=== PATIENT | female | born 1955 | race Caucasian/White ===

== ENCOUNTER 2019-02-26 00:14 | Inpatient (IN) | payer MEDICAID ==
[~2019-02-26] VITALS: Ht 170.2 cm; Wt 76.3 kg
--- NOTE | 2019-02-26 00:37 | PHYS DOC ---
Adult General Chief Complaint Chief Complaint: MECHANICAL FALL HPI HPI 63-year-old female presents via EMS from rehabilitation facility. They sent her here tonight because she fell twice today. She fell once in the morning and then once in the evening. She tells me that she remembers falling, but is unsure why she fell. She states that she just collapsed. She tells me her legs "just give out sometimes". She has not been feeling ill lately. She does admit to frequent urination. She "has a lot of problems with anxiety". She denies fever or chills. She has no other complaints at this time. Review of Systems Review of Systems Constitutional: Denies fever or chills [] Eyes: Denies change in visual acuity, redness, or eye pain [] HENT: Denies nasal congestion or sore throat [] Respiratory: Denies cough or shortness of breath [] Cardiovascular: No additional information not addressed in HPI [] GI: Denies abdominal pain, nausea, vomiting, bloody stools or diarrhea [] : Urinary frequency[] Musculoskeletal: Left arm and leg pain[] Integument: Denies rash or skin lesions [] Neurologic: Denies headache, focal weakness or sensory changes [] Endocrine: Denies polyuria or polydipsia [] All other systems were reviewed and found to be within normal limits, except as documented in this note. Allergies Allergies Allergies Coded Allergies Type Severity Reaction Last Updated Verified captopril Allergy Intermediate 02/26/19 Yes lithium Allergy Intermediate 02/26/19 Yes sulfamethoxazole Allergy Intermediate 02/26/19 Yes trimethoprim Allergy Intermediate Unknown 02/26/19 Yes Tetanus Vaccines and Toxoid Allergy Unknown 02/26/19 Yes Physical Exam Physical Exam Constitutional: Well developed, well nourished, no acute distress, non-toxic appearance. [] HENT: Normocephalic, atraumatic, bilateral external ears normal, oropharynx moist, no oral exudates, nose normal. [] Eyes: PERRLA, EOMI, conjunctiva normal, no discharge. [] Neck: Normal range of motion, no tenderness, supple, no stridor. [] Cardiovascular:Heart rate regular rhythm, no murmur [] Lungs & Thorax: Bilateral breath sounds clear to auscultation [] Abdomen: Bowel sounds normal, soft, no tenderness, no masses, no pulsatile masses. [] Skin: Warm, dry, no erythema, no rash. [] Back: No tenderness, no CVA tenderness. [] Extremities: No tenderness, no cyanosis, no clubbing, ROM intact, no edema. [] Neurologic: Alert and oriented X 3, normal motor function, normal sensory function, no focal deficits noted. [] Psychologic: Affect normal, judgement normal, mood anxious. [] EKG EKG [] Radiology/Procedures Radiology/Procedures [] Impressions: STUDY: CT head without contrast INDICATION: Fall. COMPARISON: Most recently on 02/14/2019 TECHNIQUE: Axial CT imaging through the head without the use of intravenous contrast. Sagittal and coronal reformats were obtained. One or more of the following individualized dose reduction techniques were utilized for this examination: 1. Automated exposure control 2. Adjustment of the mA and/or kV according to patient size 3. Use of iterative reconstruction technique. FINDINGS: No acute intracranial hemorrhage. No newly seen area of tejada-white matter differentiation loss to suggest an acute cortical infarction. Redemonstrated dilatation of the right lateral ventricle that is unchanged from the prior. Less pronounced ventriculomegaly elsewhere is unchanged. Intracranial atherosclerotic calcifications. White matter findings as can be seen in the setting of chronic microvascular ischemic change. Parenchymal volume loss. No large scalp hematoma is readily apparent. The orbits/globes are unremarkable. No depressed calvarial fracture. The paranasal sinuses and mastoid air cells are well aerated. IMPRESSION: No acute intracranial abnormality by CT. No significant interval change from the 02/14/2019 comparison with chronic findings to include ventriculomegaly as detailed above. Electronically signed by: EMERITA JOAQUIN MD (02/26/2019 2:11 AM) [facility] DICTATED AND SIGNED BY: EMERITA JOAQUIN MD DATE: 02/26/19210 CC: ALISIA BARBOZA DO; YOLIS BARNES MD ~ Course & Med Decision Making Course & Med Decision Making Pertinent Labs and Imaging studies reviewed. (See chart for details) The patient's head CT is negative for acute findings. There are significant chronic findings. See official read for more details. Her CBC is unremarkable. Her urinalysis is negative for infection. The patient had an episode of unsteadiness as she transitioned from the bed to the bedside commode. She did not fall, required assistance from the nurse. The patient's CMP is unremarkable except for low albumin. I do not have a definitive reason for why the patient has having dizziness and falls. I spoke to the hospitalist, Dr. Chapman and he has accepted the patient for admission and further workup. [] Dragon Disclaimer Dragon Disclaimer This electronic medical record was generated, in whole or in part, using a voice recognition dictation system. Departure Departure: Disposition: HOME/RESIDENCE PRIOR TO ADM Condition: STABLE ALISIA BARBOZA DO Feb 26, 2019 00:37
[2019-02-26 02:08] LABS: BASO # 0.1 x10^3/uL (0.0-0.2); BASO % 1 % (0-3); EOS # 0.2 x10^3/uL (0.0-0.7); EOS % 2 % (0-3); HEMATOCRIT 38.5 % (36.0-47.0); HEMOGLOBIN 12.9 g/dL (12.0-15.5); LYMPH # 2.9 x10^3/uL (1.0-4.8); LYMPH % 40 % (24-48); MEAN CORPUSCULAR HEMOGLOBIN 33 pg (25-35); MEAN CORPUSCULAR HGB CONC 34 g/dL (31-37); MEAN CORPUSCULAR VOLUME 97 fL (79-100); MONO # 0.7 x10^3/uL (0.0-1.1); MONO % 10 % (0-9); NEUT # 3.5 x10^3uL (1.8-7.7); NEUT % 48 % (31-73); PLATELET COUNT 145 x10^3/uL (140-400); RED BLOOD COUNT 3.95 x10^6/uL (3.50-5.40); RED CELL DISTRIBUTION WIDTH 14.4 % (11.5-14.5); WHITE BLOOD COUNT 7.3 x10^3/uL (4.0-11.0)
--- NOTE | 2019-02-26 02:14 | RAD ---
STUDY: CT head without contrast INDICATION: Fall. COMPARISON: Most recently on 02/14/2019 TECHNIQUE: Axial CT imaging through the head without the use of intravenous contrast. Sagittal and coronal reformats were obtained. One or more of the following individualized dose reduction techniques were utilized for this examination: 1. Automated exposure control 2. Adjustment of the mA and/or kV according to patient size 3. Use of iterative reconstruction technique. FINDINGS: No acute intracranial hemorrhage. No newly seen area of tejada-white matter differentiation loss to suggest an acute cortical infarction. Redemonstrated dilatation of the right lateral ventricle that is unchanged from the prior. Less pronounced ventriculomegaly elsewhere is unchanged. Intracranial atherosclerotic calcifications. White matter findings as can be seen in the setting of chronic microvascular ischemic change. Parenchymal volume loss. No large scalp hematoma is readily apparent. The orbits/globes are unremarkable. No depressed calvarial fracture. The paranasal sinuses and mastoid air cells are well aerated. IMPRESSION: No acute intracranial abnormality by CT. No significant interval change from the 02/14/2019 comparison with chronic findings to include ventriculomegaly as detailed above. Electronically signed by: EMERITA JOAQUIN MD (02/26/2019 2:11 AM) [facility]
[2019-02-26 02:21] LABS: BACTERIA,URINE 0 /HPF (0-FEW); BILIRUBIN,URINE NEG (NEG); CLARITY,URINE CLEAR; COLOR,URINE YELLOW; GLUCOSE,URINE NEG (NEG); NITRITE,URINE NEG (NEG); RBC,URINE 0 /HPF (0-2); SQUAMOUS EPITHELIAL CELL,UR FEW /LPF; UROBILINOGEN,URINE 0.2 mg/dL (0.2 mg/dL)
[2019-02-26 02:23] LABS: ALBUMIN 2.8 g/dL (3.4-5.0); ALBUMIN/GLOBULIN RATIO 0.7 (1.0-1.7); CALCIUM 9.2 mg/dL (8.5-10.1); GFR 56.4; TOTAL BILIRUBIN 0.2 mg/dL (0.2-1.0); TOTAL PROTEIN 6.8 g/dL (6.4-8.2)
[2019-02-26 02:24] LABS: POTASSIUM 4.2 mmol/L (3.5-5.1)
[2019-02-26] MEDS ORDERED: ONDANSETRON PF 4 MG/2 ML VIAL. IV PRN (02:45)
[2019-02-26 04:08] VITALS: BP 134/89
[2019-02-26] MEDS ORDERED: BISA10SU4 RC (05:32)
[2019-02-26] MEDS ORDERED: SERT100T PO (05:32)
[2019-02-26] MEDS ORDERED: MAGN400O7 PO (05:32)
[2019-02-26] MEDS ORDERED: NA P133E2 RC (05:32)
[2019-02-26] MEDS ORDERED: ACET325T9 PO (05:32)
[2019-02-26] MEDS ORDERED: DIVA500T2 PO (05:32)
[2019-02-26] MEDS ORDERED: ONDA4TAB12 PO (05:32)
[2019-02-26] MEDS ORDERED: QUET100T4 PO (05:32)
[2019-02-26] MEDS ORDERED: FAMO20TA5 PO (05:32)
[2019-02-26] MEDS ORDERED: RISP0.5T24 PO (05:32)
[2019-02-26] MEDS ORDERED: ASPI-630 PO (05:32)
[2019-02-26] MEDS ORDERED: LOSA50TA86 PO (05:32)
[2019-02-26] MEDS ORDERED: CLON1TAB PO (05:32)
[2019-02-26] MEDS ORDERED: QUET200T4 PO (05:32)
[2019-02-26] MEDS ORDERED: TRAM50TA PO (05:32)
[2019-02-26 07:00] VITALS: BP 134/89
[2019-02-26 10:11] VITALS: BP 133/98
--- NOTE | 2019-02-26 12:10 | HP ---
ADMIT DATE: 02/26/2019 HISTORY OF PRESENT ILLNESS: The patient is a 63-year-old female patient, a resident at [facility], who was brought to the Emergency Room after she sustained a mechanical fall. She was brought here last night because she fell twice. She fell once in the morning and then once in the evening. She stated that she remembers falling, but is unsure why she fell. She just has collapsed. She said that her legs just gave out sometimes. She has not been feeling ill lately. She does admit to frequent urination. She has a lot of problems with anxiety. She denies any fever or chills. She has no other complaints at this time. She was extensively investigated and did have a CT scan of the head without contrast, which basically showed no acute intracranial abnormality on CT scan. No significant interval change from 02/14/2019 in comparison. Her chronic finding to include ventriculomegaly, more in the right lateral ventricle that is unchanged from prior, she did have ventriculomegaly less pronounced in the left side. She has intracranial atherosclerotic calcification and white matter findings suggestive of chronic microvascular ischemic changes and parenchymal volume loss. She was admitted. Other lab works were unremarkable, particularly a CBC. Her chemistry as well as her urinalysis was essentially unremarkable and she was admitted for further evaluation and treatment. PAST MEDICAL HISTORY: Significant for hypertension. She also has encephalitis and encephalomyelitis and temporal sclerosis, schizoaffective disorder, bipolar type. She has generalized muscle weakness, difficulty walking, cognitive communication deficit, major depressive disorder, recurrent, unspecified anxiety disorder. She also is known to have seizure disorder, gastroesophageal reflux disease without esophagitis, chronic constipation, and nausea and vomiting. She has also had episodes of psychosis with hallucinations. She also has a history of alcohol abuse as well as stimulant abuse. PAST SURGICAL HISTORY: Unremarkable. ALLERGIES: SHE IS ALLERGIC TO TETANUS VACCINES AND TOXOIDS, CAPTOPRIL, LITHIUM, SULFAMETHOXAZOLE AND TRIMETHOPRIM. MEDICATIONS: She is currently on following medications: She is on losartan potassium 50 mg once a day, aspirin 81 mg once a day, tramadol 50 mg every 6 hours as needed, acetaminophen 650 mg every 6 hours, clonazepam 1.5 mg at bedtime, divalproex sodium 1500 mg at bedtime, sertraline 100 mg once a day. She is on quetiapine fumarate for Seroquel 100 mg afternoon and 200 mg twice a day. She is on risperidone 0.5 mg at bedtime, bisacodyl 10 mg suppositories rectally daily p.r.n. for constipation, milk of magnesia 30 mL p.o. daily p.r.n. for constipation. She has a fleet enema rectally daily p.r.n. for constipation. She is on ondansetron 4 mg every 6 hours as needed. She is on famotidine 20 mg at bedtime. FAMILY HISTORY: Noncontributory. SOCIAL HISTORY: She is , currently residing at [facility] for almost a year now. She has a son and a daughter. 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 She does smoke, does not drink alcohol, and according to her, does not use any illicit drugs, although in her history from the nursing facility, she apparently has alcohol and stimulant abuse. REVIEW OF SYSTEMS: The patient was very lethargic and drifts to sleep and was not forthcoming with any complaint. OBJECTIVE: GENERAL: When I examined her, she was pale, but no jaundice, cyanosis, or thyromegaly. No jugular venous distension. No limb edema. VITAL SIGNS: Her heart rate was 72, blood pressure was 133/98, temperature was 97.6, respiratory rate was 18, and oxygen saturation was 94% on room air. HEAD, EYES, EARS, NOSE, AND THROAT: She is normocephalic, atraumatic. NECK: Supple. HEART: Showed normal first and second heart sounds. No gallop or murmur. CHEST: Clear to auscultation. No crepitation or rhonchi. ABDOMEN: Distended, soft, nontender. NEUROLOGIC: She is sleepy, but arousable. All cranial nerves intact. She seemed to have residual left-sided weakness and according to nursing staff, she has also some shuffling gait. She is on multiple psychotropic medications that might cause drug-induced Parkinson's disease, although I have not tested her gait as she normally uses a walker. LABORATORY DATA: Her lab work this morning showed a white cell count 7300, hemoglobin 13, hematocrit 39, MCV 97, and platelet count of 148,000, with normal manual differential. Her chemistry showed a serum sodium 139, potassium 4.2, chloride 104, bicarbonate 29, anion gap of 6, BUN 17, creatinine was 1. Estimated GFR was 56 mL per minute. Her glucose was 84, calcium was 9.2. Total bilirubin, AST, ALT, alkaline phosphatase were normal. Total protein was 6.8, albumin was 2.8. Urinalysis showed the urine was yellow, clear with a pH of 7.5, specific gravity of 1.010. The urine was negative for protein, glucose, ketones, blood, nitrite, and leukocyte esterase. There are no rbc's, very few wbc's, and no bacteria. RADIOLOGICAL DATA: Her CT scan of the head showed no acute intracranial hemorrhage, no newly seen areas of tejada-white matter differentiation loss to suggest an acute cortical infarction but demonstrated dilatation of the right lateral ventricle. This is unchanged from prior, less pronounced ventriculomegaly, elsewhere is unchanged. Intracranial atherosclerotic calcification, white matter findings as can be seen in the setting of chronic microvascular ischemic changes and parenchymal volume loss. No large scalp hematoma is readily apparent. The orbits and globes are unremarkable. No depressed calvarial fracture of the paranasal sinuses and mastoid air cells are well aerated. IMPRESSION: So, in summary, this is a 63-year-old female patient who was admitted with recurrent falls. She apparently has a history of right-sided cerebrovascular accident, left-sided hemiplegia. There is also marked parenchymal loss with ventriculomegaly, suggesting perhaps normal-pressure hydrocephalus. She is known to have hypertension, schizophrenia, and bipolar disorder. PLAN: My plan is to consult the neurologist as well as physical and occupational therapist. We will decide the further management accordingly. CRESENCIO FRASER MD DR: ANDRES/frida JOB#: [id number] / [id number]
[2019-02-26] MEDS ORDERED: MAGNESIUM HYDROXIDE 2,400 MG/30 ML ORAL.SUSP. PO PRN (12:45)
[2019-02-26] MEDS ORDERED: SODIUM PHOSPHATES 19/7GM 133 ML ENEMA. RC PRN (12:45)
[2019-02-26] MEDS ORDERED: ACETAMINOPHEN 325 MG TABLET PO PRN (12:45)
[2019-02-26] MEDS ORDERED: BISACODYL 10 MG SUPP.RECT RC PRN (12:45)
[2019-02-26] MEDS ORDERED: traMADol 50 MG TABLET PO PRN (12:45)
[2019-02-26] MEDS ORDERED: ONDANSETRON ODT 4 MG TAB.RAPDIS PO PRN (12:45)
[2019-02-26] MEDS: QUEtiapine 100 MG TABLET. PO SCH ×2 (13:40→20:20)
[2019-02-26 15:45] VITALS: BP 149/96
[2019-02-26] MEDS ORDERED: traZODone 50 MG TABLET. PO PRN (19:30)
[2019-02-26 20:12] VITALS: BP 138/85
[2019-02-26] MEDS: DIVALPROEX ER 500 MG TAB.ER.24H PO SCH (20:20)
[2019-02-26] MEDS: FAMOTIDINE 20 MG TABLET PO SCH (20:20)
[2019-02-26] MEDS: risperiDONE 0.5 MG TABLET. PO SCH (20:20)
[2019-02-26] MEDS: traZODone 50 MG TABLET. PO SCH (20:21)
[2019-02-26] MEDS: clonazePAM 1 MG TABLET PO SCH (20:21)
--- NOTE | 2019-02-26 21:41 | PDOC ---
Exam Note: Emilio Note: Please also refer to the separate dictated note~for this date of service dictated separately.~Patient seen individually. Discussed the patient with Nursing staff reviewed the chart.~Reviewed interim history and current functioning. Reviewed vital signs,~Labs/ Radiology~and current medications noted below. Continue current treatment with the changes noted in the dictated addendum note Assessment: Vital Signs/I&O: Vital Signs Date Time Temp Pulse Resp B/P (MAP) Pulse Ox O2 Delivery O2 Flow Rate FiO2 02/26/19 20:12 97.9 58 20 138/85 (102) 97 Room Air Labs: Laboratory Tests Test 02/26/19 01:25 02/26/19 01:35 Urine Collection Type Unknown Urine Color Yellow Urine Clarity Clear Urine pH 7.5 Urine Specific Meredith 1.020 Urine Protein Neg (NEG-TRACE) Urine Glucose (UA) Neg mg/dL (NEG) Urine Ketones (Stick) Neg mg/dL (NEG) Urine Blood Neg (NEG) Urine Nitrite Neg (NEG) Urine Bilirubin Neg (NEG) Urine Urobilinogen Dipstick 0.2 mg/dL (0.2 mg/dL) Urine Leukocyte Esterase Neg (NEG) Urine RBC 0 /HPF (0-2) Urine WBC 1-4 /HPF (0-4) Urine Squamous Epithelial Cells Few /LPF Urine Bacteria 0 /HPF (0-FEW) White Blood Count 7.3 x10^3/uL (4.0-11.0) Red Blood Count 3.95 x10^6/uL (3.50-5.40) Hemoglobin 12.9 g/dL (12.0-15.5) Hematocrit 38.5 % (36.0-47.0) Mean Corpuscular Volume 97 fL (79-100) Mean Corpuscular Hemoglobin 33 pg (25-35) Mean Corpuscular Hemoglobin Concent 34 g/dL (31-37) Red Cell Distribution Width 14.4 % (11.5-14.5) Platelet Count 145 x10^3/uL (140-400) Neutrophils (%) (Auto) 48 % (31-73) Lymphocytes (%) (Auto) 40 % (24-48) Monocytes (%) (Auto) 10 % (0-9) H Eosinophils (%) (Auto) 2 % (0-3) Basophils (%) (Auto) 1 % (0-3) Neutrophils # (Auto) 3.5 x10^3uL (1.8-7.7) Lymphocytes # (Auto) 2.9 x10^3/uL (1.0-4.8) Monocytes # (Auto) 0.7 x10^3/uL (0.0-1.1) Eosinophils # (Auto) 0.2 x10^3/uL (0.0-0.7) Basophils # (Auto) 0.1 x10^3/uL (0.0-0.2) Sodium Level 139 mmol/L (136-145) Potassium Level 4.2 mmol/L (3.5-5.1) Chloride Level 104 mmol/L (98-107) Carbon Dioxide Level 29 mmol/L (21-32) Anion Gap 6 (6-14) Blood Urea Nitrogen 17 mg/dL (7-20) Creatinine 1.0 mg/dL (0.6-1.0) Estimated GFR (Cockcroft-Gault) 56.4 BUN/Creatinine Ratio 17 (6-20) Glucose Level 84 mg/dL (70-99) Calcium Level 9.2 mg/dL (8.5-10.1) Total Bilirubin 0.2 mg/dL (0.2-1.0) Aspartate Amino Transferase (AST) 17 U/L (15-37) Alanine Aminotransferase (ALT) 10 U/L (14-59) L Alkaline Phosphatase 56 U/L (46-116) Total Protein 6.8 g/dL (6.4-8.2) Albumin 2.8 g/dL (3.4-5.0) L Albumin/Globulin Ratio 0.7 (1.0-1.7) L Current Medications: Meds: Current Medications Medications (Trade) Dose Ordered Sig/Modesta Route PRN Reason Start Time Stop Time Status Last Admin Dose Admin Clonazepam (KlonoPIN) 1.5 mg HS PO 02/26/19 21:00 02/26/19 20:21 Famotidine (Pepcid) 20 mg HS PO 02/26/19 21:00 02/26/19 20:20 Quetiapine Fumarate (SEROquel) 100 mg AFTRNOON PO 02/26/19 13:00 02/26/19 13:40 Risperidone (RisperDAL) 0.5 mg QHS PO 02/26/19 21:00 02/26/19 20:20 Divalproex Sodium (Depakote Er) 1,500 mg QHS PO 02/26/19 21:00 02/26/19 20:20 Quetiapine Fumarate (SEROquel) 200 mg BID PO 02/26/19 21:00 02/26/19 20:20 Trazodone HCl (Desyrel) 50 mg QHS PO 02/26/19 21:00 02/26/19 20:21 I have reviewed the current psychotropics carefully including drug interactions. Risk benefit ratio favors no change other than as noted in my dictated progress note. Diagnosis: Problems: (1) Anxiety disorder (2) Schizoaffective disorder, chronic condition with acute exacerbation (3) Impulse control disorder NAYELY JORDAN MD Feb 26, 2019 21:41
[2019-02-27 05:58] VITALS: BP 150/92
[2019-02-27] MEDS: ASPIRIN 81 MG TAB.CHEW PO SCH (08:27)
[2019-02-27] MEDS: SERTRALINE 100 MG TABLET. PO SCH (08:28)
[2019-02-27] MEDS: LOSARTAN 50 MG TABLET. PO SCH (08:28)
[2019-02-27] MEDS: QUEtiapine 100 MG TABLET. PO SCH ×3 (08:28→20:07)
[2019-02-27 09:48] LABS: VAL ACID 67 mcg/mL (50-100)
[2019-02-27 12:41] VITALS: BP 136/68
[2019-02-27] MEDS: NICOTINE 7MG PATCH. TD SCH (13:03)
[2019-02-27 19:14] VITALS: BP 152/116
[2019-02-27] MEDS: DIVALPROEX ER 500 MG TAB.ER.24H PO SCH (20:07)
[2019-02-27] MEDS: clonazePAM 1 MG TABLET PO SCH (20:07)
[2019-02-27] MEDS: traZODone 50 MG TABLET. PO SCH (20:07)
[2019-02-27] MEDS: risperiDONE 0.5 MG TABLET. PO SCH (20:07)
[2019-02-27] MEDS: FAMOTIDINE 20 MG TABLET PO SCH (20:07)
[2019-02-27 20:54] VITALS: BP 137/96
--- NOTE | 2019-02-27 21:46 | PDOC ---
Exam Note: Emilio Note: Please also refer to the separate dictated note~for this date of service dictated separately.~Patient seen individually. Discussed the patient with Nursing staff reviewed the chart.~Reviewed interim history and current functioning. Reviewed vital signs,~Labs/ Radiology~and current medications noted below. Continue current treatment with the changes noted in the dictated addendum note Assessment: Vital Signs/I&O: Vital Signs Date Time Temp Pulse Resp B/P (MAP) Pulse Ox O2 Delivery O2 Flow Rate FiO2 02/27/19 20:54 137/96 (110) 02/27/19 19:21 Room Air 02/27/19 19:14 98.3 92 18 97 I & O 02/26/19 02/26/19 02/27/19 15:00 23:00 07:00 Intake Total 960 ml 120 ml Output Total 2 ml 3 ml Balance 958 ml 117 ml Labs: Laboratory Tests Test 02/27/19 09:23 Valproic Acid Level 67 mcg/mL (50-100) Valproic Acid Last Dose Date 02/26/19 Valproic Acid Last Dose Time 2100 Current Medications: Meds: Current Medications Medications (Trade) Dose Ordered Sig/Modesta Route PRN Reason Start Time Stop Time Status Last Admin Dose Admin Aspirin (Children'S Aspirin) 81 mg DAILY PO 02/27/19 09:00 02/27/19 08:27 Losartan Potassium (Cozaar) 50 mg DAILY PO 02/27/19 09:00 02/27/19 08:28 Sertraline HCl (Zoloft) 100 mg DAILY PO 02/27/19 09:00 02/27/19 08:28 Nicotine (Nicoderm Cq 7mg) 1 patch DAILY TD 02/27/19 13:00 02/27/19 13:03 Olanzapine (ZyPREXA ZYDIS) 2.5 mg PRN Q2HR PRN PO PSYCHOSIS;AGITATION;ANXIETY 02/27/19 17:30 02/27/19 17:24 I have reviewed the current psychotropics carefully including drug interactions. Risk benefit ratio favors no change other than as noted in my dictated progress note. Diagnosis: Problems: (1) Recurrent falls (2) Hemiplegia affecting left nondominant side (3) Fall (4) Anxiety disorder (5) Schizoaffective disorder, chronic condition with acute exacerbation (6) Impulse control disorder NAYELY JORDAN MD Feb 27, 2019 21:46
--- NOTE | 2019-02-27 22:59 | DS ---
DATE OF DISCHARGE: 02/27/2019 HOSPITAL COURSE: The patient is a 63-year-old female patient, resident at [facility], who was brought to the Emergency Room after she sustained a mechanical fall. She apparently has fallen twice without sustaining any injury. She was extensively evaluated. CT scan of the head without contrast showed no evidence of any acute intracranial abnormality, no significant interval change from 02/14/2019 in comparison. Her chronic finding to include ventriculomegaly more on the right lateral ventricle that is unchanged from prior. She did have ventriculomegaly, less pronounced on the left side. She has intracranial atherosclerotic calcification white matter findings suggestive of chronic microvascular ischemic changes and parenchymal volume loss. Her lab works were unremarkable and she was evaluated by the physical therapist. We checked her orthostatics. No evidence of any postural hypotension. The patient has been ambulating steadily without any assistance or assistive devices and she has been extremely agitated and given that she is medically stable, an attempt was made to transfer her to [facility]. Unfortunately, she does not qualify to go upstairs and therefore, a decision was made to discharge her back to [facility]. PHYSICAL EXAMINATION: GENERAL: When I saw her this afternoon, she looked well and was clearly in no apparent respiratory distress. No pallor, jaundice, cyanosis, or thyromegaly. No jugular venous distention. No limb edema. VITAL SIGNS: Her heart rate was 75, blood pressure was 136/68, temperature was 98.2, respiratory rate was 20, and oxygen saturation was 95%. The rest of clinical exam stable. LABORATORY DATA: Showed a white cell count 7300, hemoglobin 13, hematocrit 38, MCV 97, and platelet count 145,000. Her chemistry showed a serum sodium 139, potassium 4.2, chloride was 104, bicarbonate 29, anion gap of 6, BUN 17, creatinine was 1, estimated GFR was 56 mL per minute, her glucose was 84, calcium was 9.2. Total bilirubin, AST, ALT, alkaline phosphatase were normal. Total protein was 6.8 and albumin 2.8. Urinalysis was unremarkable and toxic screen showed the valproic acid at 67 mcg/mL, which is well within therapeutic range. DISCHARGE MEDICATIONS: The patient was discharged back to [facility], to continue on Tylenol 650 mg every 6 hours, aspirin 81 mg daily, bisacodyl 10 mg suppository rectally daily p.r.n. for constipation, clonazepam 1.5 mg at bedtime for anxiety, divalproex 1500 mg at bedtime, famotidine 20 mg at bedtime, losartan potassium 50 mg daily, magnesium hydroxide for milk of magnesia 30 mL p.o. daily p.r.n. for constipation, Fleet enema rectally daily p.r.n. for constipation, ondansetron ODT 4 mg tablet. She was discharged also on quetiapine fumarate 100 mg at noon and 200 mg twice a day, risperidone for Risperdal 0.5 mg at bedtime, sertraline for Zoloft 100 mg tablet daily, and tramadol 50 mg p.o. q. 6 hourly as needed. FINAL DISCHARGE DIAGNOSES: Recurrent fall. No evidence of postural hypotension or any neurological deficit. Other medical problems include hypertension; encephalitis and encephalomyelitis; temporal sclerosis; schizoaffective disorder, bipolar type; generalized muscle weakness; cognitive communication deficit; major depressive disorder; severe anxiety disorder. She also has seizure disorder, gastroesophageal reflux disease, chronic constipation, episodes of psychosis, and hallucinations. CRESENCIO FRASER MD DR: ANDRES/frida JOB#: [id number] / [id number]
--- NOTE | 2019-02-28 00:36 | PN ---
DATE: 02/27/2019 SUBJECTIVE: The patient is resting, slightly propped up, sleeping comfortably, in no apparent distress. She is sleepy, but arousable. Unfortunately, she continued to drift back to sleep. She is on huge amount of medications that are sedating. She is on 200 mg of Seroquel twice a day and 100 mg at noon. She is on sertraline 100 mg daily. She is on trazodone 50 mg at bedtime. She is on divalproex 1500 mg at bedtime, risperidone 0.5 mg at bedtime. She is also on clonazepam 1.5 mg at bedtime. She is also on tramadol and I had a feeling that the patient is seen to be excessively sedated and may be the reason why she is falling. On questioning her this morning, she denied any complaint. The nursing staff did not voice any concerns that she has no further episodes of falling. She does manage to walk to the bathroom back without any assistance or assistive devices. OBJECTIVE: GENERAL: On examining her, she looked well and was clearly in no apparent respiratory distress. VITAL SIGNS: Her heart rate was 70, blood pressure 150/92, temperature was 97.4, respiratory rate was 18 and oxygen saturation was 96%. HEAD, EYES, EARS, NOSE AND THROAT: Showed normocephalic, atraumatic. NECK: Supple. HEART: Showed normal first and second heart sounds. No gallop or murmur. CHEST: Clear to auscultation. No crepitation or rhonchi. ABDOMEN: Distended, soft, nontender. No guarding or rigidity. No organomegaly. All hernial orifice intact. Bowel sounds normal. NEUROLOGIC: She is sleepy, but arousable. She seemed to be definitely more excessively sedated that she drifts back to sleep quickly, but all her cranial nerves are intact. She seemed to have residual left-sided hemiparesis. Her intake over the last 24 hours was 1080, no output was recorded. LABORATORY DATA: No lab work was done this morning. ASSESSMENT: 1. This is a 63-year-old female patient who was admitted with recurrent falls. 2. 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 3. She has also marked parenchymal loss and ventriculomegaly, suggesting perhaps normal pressure hydrocephalus. 4. Hypertension. 5. Schizophrenia. 6. Bipolar disorder. 7. The patient seemed to be excessively sedated as she is on Seroquel a total of 500 day. She is on trazodone 100 mg in the morning and 50 at night time. She is on risperidone 0.5 mg at bedtime and also clonazepam 1.5 mg at bedtime. I have already consulted Dr. Snyder and Dr. Villa. I believe that the patient seemed to be excessively sedated and perhaps some of her medication need to be cut down or discontinued altogether. CRESENCIO FRASER MD DR: ANDRES/frida JOB#: [id number] / [id number]
[2019-02-28 04:50] VITALS: BP 149/98
--- NOTE | 2019-02-28 06:29 | CONS ---
DATE OF CONSULTATION: 02/26/2019 This late entry date of service 02/26/2019 covers the elements not covered in my initial note 02/26/2019. I met with the patient in the evening of 02/26/2019. Discussed with nursing staff, reviewed the chart. IDENTIFYING DATA: The patient is a 63-year-old female seen in bed #107, [facility], for a psychiatric consult requested by Dr. Chapman on account of confusion, possible acute mental status changes, possible dementia within the context of her history of bipolar disorder. The patient has been agitated, anxious with significant mood lability as the reason for the request for this consult. CHIEF COMPLAINT: "I can't stop crying. I need something to help me sleep. I have bipolar disorder. I do not have schizoaffective disorder." HISTORY OF PRESENT ILLNESS: The patient is a [facility] the [facility] in [place] and she was brought to the Emergency Room after she sustained a mechanical fall. She had fallen the previous night on two separate occasions, once in the morning and once in the evening. She states she remembers the fall, but is unsure why she fell. She just had collapsed and her legs gave out from under her. She also admitted to frequent urination, complains of increased anxiety. CT head in the ER showed no acute changes and no interim change from 02/14/2019. She does have some ventriculomegaly more in the right lateral ventricle, unchanged from before. She has intracranial atherosclerotic calcification and white matter findings suggestive of chronic microvascular ischemic changes, parenchymal volume loss. ADMISSION LABS: CBC was unremarkable. UA unremarkable. She does admit to significant anxiety, mood swings, periods of elation, racing thoughts, alternating with being depressed in association with paranoia. PAST PSYCHIATRIC HISTORY: Positive for bipolar disorder with the mood swings and psychotic symptoms and recent depressive symptoms. She does complain of significant ongoing insomnia. She has extensive history of past alcohol abuse, but minimizes this. MEDICAL HISTORY: Positive for hypertension, encephalitis, and encephalomyelitis, temporal sclerosis, muscle weakness, seizure disorder, GERD, chronic constipation, nausea, and vomiting. PAST SURGICAL HISTORY: Unremarkable. ALLERGIES: TETANUS VACCINE AND TOXOID, CAPTOPRIL, LITHIUM, SULFAMETHOXAZOLE AND TRIMETHOPRIM. CURRENT PSYCHOTROPICS: Klonopin 1.5 mg at bedtime, Depakote 1500 mg at bedtime, Zoloft 100 mg a day, Seroquel 100 mg in the afternoon and 200 mg twice a day, Risperdal 0.5 mg at bedtime. FAMILY HISTORY: Noncontributory. SOCIAL HISTORY: The patient is . Alcohol abuse history as noted above. She resides at the [facility] noted [facility]. She has a son and a daughter. 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 She categorically denies drug abuse with the alcohol abuse history as noted above and stimulant abuse. REVIEW OF SYSTEMS: Positive for weakness, tiredness, unsteady gait. No CV, , pulmonary, eye system symptoms on review. Reliability poor. MENTAL STATUS EXAMINATION: The patient was seen individually in the evening of 02/26/2019 in her room. She is oriented to herself and situation, but was unaware of what [facility]iary she lived at. Speech coherent and rapid. She was initially very tearful, anxious. Short term memory is impaired. No active suicidal or homicidal ideation. She is quite obsessive, fixated on her ongoing insomnia. Attention span short. Language function intact. LABORATORY DATA: Reviewed. 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 Rest as above. RECOMMENDATIONS: From a psychiatric standpoint, we will start her on trazodone 50 mg at bedtime, may repeat x 1 for insomnia. As of the time of this dictation, I have been called by the nursing staff as the patient continues to have marked mood lability, anxiety, paranoia and we have added Zyprexa 2.5 mg q. 2 hours p.r.n. psychosis, agitation, max 15 mg in 24 hours. Valproic acid level should be checked and Depakote adjusted to reach therapeutic level. She is on 2 atypical antipsychotics and these should be simplified. When she is medically stable, perhaps she may need to be transferred [facility] for psychiatric stabilization before returning to the [facility]. Dr. Chapman, thank you for the opportunity to participate in your patient's care. We will follow with you. NAYELY JORDAN MD DR: CHELSEA/frida JOB#: [id number] / [id number]
[2019-02-28] MEDS ORDERED: FLU VAX QS 2019-20 (36MOS+)/PF 0.5 ML SYRINGE. VAX IM ONE (07:45)
[2019-02-28] MEDS: SERTRALINE 100 MG TABLET. PO SCH (09:49)
[2019-02-28] MEDS: LOSARTAN 50 MG TABLET. PO SCH (09:49)
[2019-02-28] MEDS: QUEtiapine 100 MG TABLET. PO SCH ×2 (09:49→12:39)
[2019-02-28] MEDS: ASPIRIN 81 MG TAB.CHEW PO SCH (09:49)
[2019-02-28] MEDS: NICOTINE 7MG PATCH. TD SCH (09:50)
[2019-02-28 13:37] VITALS: BP 105/45
--- NOTE | 2019-02-28 21:54 | CONS ---
DATE OF CONSULTATION: 02/27/2019 REFERRING PHYSICIAN: Dr. Chapman. REASON FOR CONSULTATION: Dizziness, gait disturbances, and frequent falls. HISTORY OF PRESENT ILLNESS: This is a 63-year-old right-handed female who was admitted through Emergency Room on 02/26/2019 after she presented with chief complaint of frequent falls. The patient was a resident in rehabilitation facility when EMS was activated after the patient fell twice on the day of admission. She has had a history of frequent falls in the past, but she does not know how she collapsed. She just fell, but she just collapsed. She denies any lower back pain, weakness or numbness of the lower extremities; however, she stated she had stroke in the past and had left-sided weakness. During the interview, the patient told me she lost her vision completely on the left side; however, she sees me very well and then she denies any vision loss. So, basically she is not reliable in complaints. She has been crying frequently and asking to talk to her through the telephone. She denies headaches, visual disturbances, nausea, vomiting, chest pain, shortness of breath or palpitation. She has been using a walker for ambulation. Initial head CT scan revealed evidence of chronic small vessel ischemic changes along with generalized atrophy. The CAT scan did not actually change from the one done on 02/14/2019. PAST MEDICAL HISTORY: Significant for hypertension; encephalitis/encephalomyelitis; temporal sclerosis; schizoaffective disorders, bipolar type; bipolar disorder; anxiety; generalized weakness; history of seizure disorder; gastroesophageal reflux and intermittent hallucinations. PAST SURGICAL HISTORY: Negative. SOCIAL HISTORY: The patient is . She is a resident at [facility] for a year. She has son and daughter. She smokes but she denies alcohol drinking or illicit drug use but she has history of alcohol and stimulant abuse in the past. FAMILY HISTORY: None obtainable. REVIEW OF SYSTEMS: A 10-point review of system was performed as mentioned above in history of present illness. CURRENT HOME MEDICATIONS: Include losartan, potassium, aspirin, tramadol, Tylenol, valproic acid, sertraline, Seroquel. PHYSICAL EXAMINATION: GENERAL: Well-developed, well-nourished female, not in acute distress. She weighs 76.3 kilos. VITAL SIGNS: Blood pressure 136/68, respiratory rate 20, pulse is 75, temperature 98.2, oxygen saturation 95% on room air. HEENT: Normocephalic, atraumatic, otherwise unremarkable. NECK: Supple. Negative for carotid bruit, lymphadenopathy or thyromegaly. LUNGS: Clear to A and P. CARDIOVASCULAR: Regular rhythm, normal S1, S2. There is no S3, S4 or murmurs. ABDOMEN: Soft. Bowel sounds positive. EXTREMITIES: Negative for cyanosis, clubbing or edema. NEUROLOGICAL EXAM: MENTAL STATUS: The patient is alert and oriented x 2. The speech is fluent. There is no language dysfunction. Memory, judgment, and abstract thinking are fair. The patient denies hallucination or delusion. CRANIAL NERVES: Visual moreira are full. The pupils are reactive to light and accommodation. The extraocular movements are intact. There is no nystagmus. There is no facial motor or sensory deficit. Hearing is intact bilaterally. The palate is elevated symmetrically. Sternocleidomastoid muscles are powerful bilaterally. The patient shrugs her shoulders symmetrically, protrudes her tongue in the midline without fasciculation or atrophy. MOTOR EXAMINATION: No focal muscle bulk was seen. The tone is normal. The strength is 4/5 in the left upper and lower extremities. The strength elsewhere was 5/5 throughout. SENSORY EXAMINATION: Revealed normal pinprick and light touch senses throughout. Deep tendon reflexes were asymmetric and hypoactive with absent Achilles responses. GAIT: The patient uses a walker for ambulation, but however, she was able to walk in the room without any assistance. LABORATORY DATA: CBC revealed white blood cells of 7.3 thousand, hemoglobin 12.9, hematocrit 38.5, platelet count 145,000. Chemistry revealed sodium of 139, potassium 4.2, chloride 104, CO2 29, BUN 17, creatinine 1, glucose is 84, calcium is 9.2. Urinalysis is negative for urinary tract infections. Valproic acid is 67. Nonenhanced head CT scan consistent with acute intracranial process, but positive for chronic small vessel ischemic changes and ventriculomegaly. IMPRESSION: 1. Status post frequent falls with history of stroke resulted in mild left hemiparesis. 2. Multiple medical problems include hypertension, history of encephalitis, seizure disorder, gastroesophageal reflux disease. 3. Multiple psychiatric problems include schizoaffective disorders, anxiety, and possible bipolar disorder. RECOMMENDATIONS: 1. Continue with current management initiated by Dr. Chapman. 2. Physical therapy as tolerated. 3. Continue with current psychiatric care. M Elroy RAPHAEL MD DR: SARANYA/frida JOB#: [id number] / [id number]
--- NOTE | 2019-03-01 03:40 | PN ---
DATE: 02/28/2019 SUBJECTIVE: The patient denies any new medical or neurological complaints. She slept well. She smiles and she eats and drinks well. OBJECTIVE: GENERAL: Well-developed, well-nourished female, not in acute distress. VITAL SIGNS: Blood pressure 149/98, respiratory rate 24, pulse is 71, oxygen 96, and temperature 98.7. HEENT: Normocephalic, atraumatic, otherwise unremarkable. NECK: Supple. Negative for carotid bruit, lymphadenopathy or thyromegaly. LUNGS: Clear to A and P. CARDIOVASCULAR: Regular rate and rhythm, normal S1, S2. ABDOMEN: Soft. Bowel sounds positive. EXTREMITIES: Negative for cyanosis, clubbing, pitting edema. NEUROLOGICAL: The patient is alert and oriented x 2. Speech is fluent. There is no language dysfunction. Memory, judgment, and abstract thinking are fair. The patient denies hallucination or delusion. Cranial nerves are intact. No focal motor or sensory deficit. Deep tendon reflexes were symmetric and active without pathologic responses. Gait and coordination were normal. IMPRESSION: 1. Mild left upper and lower extremity paresis secondary to previous stroke -- improved. 2. Multiple psychiatric problems including bipolar disorder with mixed psychotic features, anxiety and behavior disturbances. 3. Multiple medical problems including hypertension, seizure and previous stroke with mild residual left hemiparesis. RECOMMENDATIONS: 1. Continue with current medical and psychiatric care. 2. Continue with physical therapy as needed. M Elroy RAPHAEL MD DR: SARANYA/frida JOB#: [id number] / [id number]
--- NOTE | 2019-03-01 06:35 | PN ---
DATE: 02/27/2019 PSYCHIATRIC PROGRESS NOTE This late entry 02/27/2019 covers elements not covered in my initial note. SUBJECTIVE: I met with the patient evening of 02/27/2019. Discussed with nursing staff, previously had been called by the nursing staff as well on the patient. The patient continues to have mood lability, but better during the day on 02/27/2019 compared to 02/26/2019. She slept better previous night, trazodone that I had started p.r.n. She continues to have some mood lability, anxiety, paranoia, but improved. REVIEW OF SYSTEMS: No CV, , pulmonary, eye system symptoms on review. MENTAL STATUS EXAM: Reasonably oriented. Speech is coherent, less pressured. Abstraction fair, computation impaired. Attention span short. Mood and affect remain somewhat anxious, labile, but better than before. LABORATORY DATA: Reviewed. IMPRESSION: Schizoaffective disorder, bipolar type, mixed with psychotic features; bipolar disorder, mixed with psychotic features; anxiety disorder, unspecified. Rest unchanged from before. PLAN: Continue current psychotropics. Valproic acid level is therapeutic. The patient will be [facility] back to the [facility] and further adjustments in psychotropics could be done at the facility. NAYELY JORDAN MD DR: CHELSEA/frida JOB#: [id number] / [id number]
== END 2019-02-28 16:55 | DRG 885 ==
LOC: ER 00:14 → 1 SOUTH 03:00
PROVIDERS: ADMIT Internal Medicine; ATTEND Internal Medicine
DX: F25.0 Schizoaffective disorder, bipolar type (principal); I69.354 Hemiplegia and hemiparesis following cerebral infarction affecting left non-dominant side; G93.89 Other specified disorders of brain; I10 Essential (primary) hypertension; F41.9 Anxiety disorder, unspecified; K59.09 Other constipation; F63.9 Impulse disorder, unspecified; G93.81 Temporal sclerosis; R41.841 Cognitive communication deficit; F10.10 Alcohol abuse, uncomplicated; F17.200 Nicotine dependence, unspecified, uncomplicated; G40.909 Epilepsy, unspecified, not intractable, without status epilepticus; K21.9 Gastro-esophageal reflux disease without esophagitis; W18.39XA Other fall on same level, initial encounter; Z79.899 Other long term (current) drug therapy; Z86.61 Personal history of infections of the central nervous system; Z91.81 History of falling; Z88.7 Allergy status to serum and vaccine; Z88.8 Allergy status to other drugs, medicaments and biological substances; Y93.89 Activity, other specified; Y92.89 Other specified places as the place of occurrence of the external cause; Y99.8 Other external cause status
CPT/HCPCS: 36415; 70450; 80053; 80164; 81001; 85025; 90471; 90686; 99285-25